=== PATIENT | female | born 1955 | race Caucasian/White ===

== ENCOUNTER 2017-04-07 12:31 | Emergency (ER) | payer MEDICAID ==
[~2017-04-07] VITALS: Ht 175.3 cm; Wt 102.0 kg
[~2017-04-07 12:31] MED LIST: TRAZ50TA18 PO
[2017-04-07] MEDS ORDERED: OMEP-110 PO (13:15)
[2017-04-07] MEDS ORDERED: GABA100C PO (13:15)
[2017-04-07] MEDS ORDERED: HYDROmorphone 1 MG/ML, 1ML IVPush PRN (14:00)
[2017-04-07] MEDS ORDERED: ONDANSETRON 2MG/ML, 2ML IVPush ONE (14:00)
[2017-04-07] MEDS ORDERED: SODIUM CHLORIDE FLUSH 10ML SYR IVF ONE (14:00)
[2017-04-07] MEDS ORDERED: SODIUM CHLORIDE 0.9% 1,000ML IVBOLUS ONE (14:00)
[2017-04-07] MEDS ORDERED: HYDROmorphone 1 MG/ML, 1ML ONE (14:08)
[2017-04-07] MEDS ORDERED: ONDANSETRON 2MG/ML, 2ML ONE (14:09)
[2017-04-07 14:52] LABS: ASPARTATE AMINO TRANSFERASE 16 U/L (15-37); BLOOD UREA NITROGEN 12 mg/dL (7-18)
[2017-04-07 17:03] VITALS: BP 107/50
== END 2017-04-07 16:49 | disposition home or self-care (01) ==
LOC: ED 13:36
DX: J20.9 Acute bronchitis, unspecified (principal)
CPT/HCPCS: 36415; 71010; 80053; 81003; 83605; 84145; 85025; 87040; 96361; 96374; 96375; 99285; J1170; J2405; J7030

== ENCOUNTER 2017-06-24 19:10 | Emergency (ER) | payer MEDICAID ==
[~2017-06-24] VITALS: Ht 177.8 cm; Wt 100.7 kg
[~2017-06-24 19:10] MED LIST changes: +GABA100C PO; +OMEP-110 PO
[2017-06-24] MEDS ORDERED: SODIUM CHLORIDE FLUSH 10ML SYR IVF ONE (19:30)
[2017-06-24 19:52] LABS: HEMATOCRIT 45.2 % (34.6-47.8); HEMOGLOBIN 14.8 g/dL (11.7-16.4); WHITE BLOOD COUNT 6.9 x10^3/uL (3.4-10)
[2017-06-24 20:00] LABS: ASPARTATE AMINO TRANSFERASE 16 U/L (15-37); BLOOD UREA NITROGEN 16 mg/dL (7-18)
[2017-06-24] MEDS ORDERED: SODIUM CHLORIDE 0.9%, 500ML IVBOLUS ONE (20:30)
[2017-06-24 20:50] VITALS: BP 132/70
== END 2017-06-24 21:45 | disposition home or self-care (01) ==
LOC: ED 21:00
DX: R53.1 Weakness (principal); R42 Dizziness and giddiness; Z87.891 Personal history of nicotine dependence
CPT/HCPCS: 36415; 71010; 73660; 80053; 81001; 82550; 83735; 84443; 85025; 93005; 99285; J7040

== ENCOUNTER 2018-11-05 11:06 | Emergency (ER) | payer MEDICAID ==
[~2018-11-05] VITALS: Ht 175.3 cm; Wt 104.9 kg
[~2018-11-05 11:06] MED LIST changes: -TRAZ50TA18 PO; +TRAZ50TA66 PO
[2018-11-05] MEDS ORDERED: DULO30CA2 PO (11:41)
[2018-11-05] MEDS ORDERED: PANT20TA3 PO (11:41)
[2018-11-05] MEDS ORDERED: ATOR-2 PO (11:41)
[2018-11-05] MEDS ORDERED: ALBUTEROL/IPRATROPIUM 2.5MG/0.5MG, 3 ML ONE (12:03)
[2018-11-05 12:41] VITALS: BP 139/81
[2018-11-05 12:55] LABS: BASOPHILS # (AUTO) 0.04 x10^3/uL (0-0.1); BASOPHILS % (AUTO) 1 % (0-1); EOSINOPHILS # (AUTO) 0.17 x10^3/uL (0-0.4); EOSINOPHILS % (AUTO) 2 % (1-7); LYMPHOCYTES # (AUTO) 2.83 x10^3/uL (1-3.4); LYMPHOCYTES % (AUTO) 39 % (22-44); MD NO; MEAN CORPUSCULAR HEMOGLOBIN 31.7 pg (27.0-34.8); MEAN CORPUSCULAR HGB CONC 33.6 g/dL (32.4-35.8); MEAN CORPUSCULAR VOLUME 94.3 fL (80-100); MEAN PLATELET VOLUME 8.4 fL (7.4-10.4); MONOCYTES # (AUTO) 0.83 x10^3/uL (0.2-0.8); MONOCYTES % (AUTO) 11 % (2-9); NEUTROPHILS # (AUTO) 3.41 x10^3/uL (1.8-6.8); NEUTROPHILS % (AUTO) 47 % (42-75); PLATELET COUNT 260 x10^3/uL (130-400); RED BLOOD COUNT 4.68 x10^6/uL (3.82-5.3); RED CELL DISTRIBUTION WIDTH 14.2 % (9.6-15.2)
[2018-11-05] MEDS: ALBUTEROL/IPRATROPIUM 2.5MG/0.5MG, 3 ML NPPB SCH (12:58)
[2018-11-05 13:05] LABS: ALBUMIN 3.5 g/dL (3.4-5.0); ANION GAP 6 mmol/L (5-15); CHLORIDE 109 mmol/L (98-107)
[2018-11-05 13:07] LABS: CREATININE 0.86 mg/dL (0.55-1.02)
== END 2018-11-05 14:12 | disposition home or self-care (01) ==
LOC: ED 13:40
DX: B34.9 Viral infection, unspecified (principal); K21.9 Gastro-esophageal reflux disease without esophagitis; E78.5 Hyperlipidemia, unspecified; F32.9 Major depressive disorder, single episode, unspecified; Z79.899 Other long term (current) drug therapy; Z87.891 Personal history of nicotine dependence
CPT/HCPCS: 36415; 71046; 80048; 82040; 85025; 93005; 94640; 99284; J7512; J7620

== ENCOUNTER 2019-04-18 14:51 | Emergency (ER) | payer MEDICAID ==
[~2019-04-18] VITALS: Ht 175.3 cm; Wt 112.0 kg
[~2019-04-18 14:51] MED LIST changes: +ATOR-2 PO; +DULO30CA2 PO; +PANT20TA3 PO
--- NOTE | 2019-04-18 15:03 | NUR ---
Bedside SBAR report received from RNZiggy. Pt resting on gurney, pt refusing ice pack therapy at this time as she states "the weight of the ice pack hurts" her injury.
--- NOTE | 2019-04-18 15:03 | NUR ---
REPORT TO TORIBIO AWAD
--- NOTE | 2019-04-18 15:59 | NUR ---
Pt ambulated to bathroom, and ambulating in hallways without assistance. made aware.
--- NOTE | 2019-04-18 16:40 | NUR ---
Pt educated regarding crutch use and returns demonstration.
[2019-04-18 16:46] VITALS: BP 152/74
--- NOTE | 2019-04-18 16:46 | NUR ---
Patient/Caregiver given discharge instructions and they have confirmed that they understand the instructions. Patient ambulatory with steady gait.
== END 2019-04-18 16:48 | disposition home or self-care (01) ==
LOC: ED 16:40
DX: M79.661 Pain in right lower leg (principal); M25.572 Pain in left ankle and joints of left foot; K21.9 Gastro-esophageal reflux disease without esophagitis; F32.9 Major depressive disorder, single episode, unspecified; E78.5 Hyperlipidemia, unspecified; Z90.710 Acquired absence of both cervix and uterus; W01.0XXA Fall on same level from slipping, tripping and stumbling without subsequent striking against object, initial encounter; Y93.89 Activity, other specified; Y92.89 Other specified places as the place of occurrence of the external cause; Y99.8 Other external cause status
CPT/HCPCS: 99283

== ENCOUNTER 2019-05-16 11:42 | Emergency (ER) | payer MEDICAID ==
[~2019-05-16] VITALS: Ht 175.3 cm; Wt 109.9 kg
[2019-05-16] MEDS ORDERED: SODIUM CHLORIDE FLUSH 10ML SYR IVF ONE (12:30)
[2019-05-16 12:40] LABS: BASOPHILS # (AUTO) 0.03 x10^3/uL (0-0.1); BASOPHILS % (AUTO) 0 % (0-1); EOSINOPHILS # (AUTO) 0.14 x10^3/uL (0-0.4); EOSINOPHILS % (AUTO) 2 % (1-7); LYMPHOCYTES # (AUTO) 1.74 x10^3/uL (1-3.4); LYMPHOCYTES % (AUTO) 18 % (22-44); MD NO; MEAN CORPUSCULAR HEMOGLOBIN 31.6 pg (27.0-34.8); MEAN CORPUSCULAR HGB CONC 32.7 g/dL (32.4-35.8); MEAN CORPUSCULAR VOLUME 96.5 fL (80-100); MEAN PLATELET VOLUME 8.6 fL (7.4-10.4); MONOCYTES # (AUTO) 0.74 x10^3/uL (0.2-0.8); MONOCYTES % (AUTO) 8 % (2-9); NEUTROPHILS # (AUTO) 6.92 x10^3/uL (1.8-6.8); NEUTROPHILS % (AUTO) 72 % (42-75); PLATELET COUNT 255 x10^3/uL (130-400); RED BLOOD COUNT 4.55 x10^6/uL (3.82-5.3); RED CELL DISTRIBUTION WIDTH 14.3 % (9.6-15.2)
[2019-05-16 12:47] LABS: ALANINE AMINOTRANSFERASE 24 U/L (12-78); ALBUMIN 3.4 g/dL (3.4-5.0); ANION GAP 8 mmol/L (5-15); CHLORIDE 110 mmol/L (98-107); CREATININE 0.83 mg/dL (0.55-1.02)
[2019-05-16 12:49] LABS: ALKALINE PHOSPHATASE 117 U/L (45-117); BILIRUBIN,TOTAL 0.6 mg/dL (0.2-1.0); TOTAL PROTEIN 7.2 g/dL (6.4-8.2)
--- NOTE | 2019-05-16 12:52 | NUR ---
SCREW CUTTER: PT TO ROOM FROM JULIOCESAR HARDIN
--- NOTE | 2019-05-16 13:19 | NUR ---
PT IN ROOM 15 W/ C/O LLQ ABD PAIN STARTED A WHILE AGO. PT STATES SHE HAS HAD NO CHANGES IN BM W// LAST BM TODAY. PT STATES SHE HAS HX DIVERTICULITIS. PT RESTING ON GURNEY. NADN. VSS. WARM BLANKET PROVIDED.
[2019-05-16 13:29] LABS: MICROSCOPIC NOT IND
[2019-05-16 13:33] LABS: CULTURE INDICATED? NO
[2019-05-16] MEDS ORDERED: HYDROcodone/APAP 5/325 TABLET ONE (13:49)
[2019-05-16] MEDS ORDERED: HYDROcodone/APAP 5/325 TABLET PO ONE (14:00)
--- NOTE | 2019-05-16 14:09 | NUR ---
PT RESTING ON SOLANGE. JAY. VSS. MEDICATED PER MAR. WHITE, HEAVY DUTY DIESEL MECHANIC AT BEDSIDE ATTEMPTING PIV.
--- NOTE | 2019-05-16 15:09 | NUR ---
PT TAKEN TO CT IN STABLE CONDITION.
[2019-05-16] MEDS ORDERED: OMNIPAQUE 350 MG/ML, 100ML BOTTLE ONE (15:14)
[2019-05-16] MEDS ORDERED: METRONIDAZOLE PMX 500MG/100ML 100 ML ONE (15:46)
--- NOTE | 2019-05-16 15:52 | NUR ---
PT RESTING ON SOLANGE. VSS. AWARE OF POC FOR IV ANTX.
[2019-05-16] MEDS ORDERED: AMPICILLIN/SULBACTAM 3 GM in SODIUM CHLORIDE 0.9% 100 ML IV ONE (16:00)
[2019-05-16] MEDS ORDERED: METRONIDAZOLE PMX 500MG/100ML 100 ML IV ONE (16:00)
--- NOTE | 2019-05-16 16:27 | NUR ---
PT RESTING ON GURNEY. GARCÍA
[2019-05-16 16:39] VITALS: BP 128/59
--- NOTE | 2019-05-16 16:40 | NUR ---
PT RESTING ON GURNEY. NADN. WOMACK.
== END 2019-05-16 17:09 | disposition home or self-care (01) ==
LOC: ED 13:15
DX: K57.32 Diverticulitis of large intestine without perforation or abscess without bleeding (principal); K21.9 Gastro-esophageal reflux disease without esophagitis; E78.5 Hyperlipidemia, unspecified; Z90.710 Acquired absence of both cervix and uterus; Z87.891 Personal history of nicotine dependence
CPT/HCPCS: 36415; 74177; 80053; 81003; 85025; 96365; 96375; 99284; J0295; Q9967